=== PATIENT | female | born 1955 | race Caucasian/White ===

== ENCOUNTER 2019-01-01 22:17 | Emergency (ER) | payer OTHER ==
[2019-01-01 22:33] VITALS: RESP 16; O2SAT 99
[2019-01-02 00:36] VITALS: BP 136/71; PULSE 72; TEMP 98.1
--- NOTE | 2019-01-02 03:47 | ED PDOC ---
HPI: General Adult Time Seen by Provider: 01/01/19 23:18 Chief Complaint (Nursing): ENT Problem History Per: Patient History/Exam Limitations: no limitations Onset/Duration Of Symptoms: Days Have you had recent travel within the past 21 days to any of the following countries: [place], [place], [place] or [place]?: No Additional Complaint(s): 63 year old F presenting with foreign body sensation to throat. States she was chewing a gummy vitamin 2 days prior and still feels as though a piece of it may be stuck in her throat. Denies difficulty swallowing solids or liquids, no vomiting but felt the urge to regurgitate after dinner tonight. No shortness of breath. PMD: [place] Past Medical History Reviewed: Historical Data, Nursing Documentation, Vital Signs Vital Signs: Last Vital Signs Temp 98.1 F 01/01/19 23:50 Pulse 72 01/01/19 23:50 Resp 16 01/01/19 23:50 BP 136/71 01/01/19 23:50 Pulse Ox 99 01/01/19 23:50 Primary Care Provider: Non [facility] Provider, - Family History Family History: States: Unknown Family Hx - Allergies Allergies/Adverse Reactions: Allergies Allergy/AdvReac Type Severity Reaction Status Date / Time No Known Allergies Allergy Verified 01/01/19 22:39 Review of Systems ROS Statement: Except As Marked, All Systems Reviewed And Found Negative Respiratory: Negative for: Shortness of Breath Physical Exam - Reviewed Nursing Documentation Reviewed: Yes Vital Signs Reviewed: Yes - Physical Exam Appears: Positive for: Well, Non-toxic, No Acute Distress Head Exam: Positive for: ATRAUMATIC, NORMAL INSPECTION, NORMOCEPHALIC Skin: Positive for: Normal Color, Warm, DRY Eye Exam: Positive for: EOMI, Normal appearance, PERRL ENT: Positive for: Normal ENT Inspection Neck: Positive for: Normal, Painless ROM Cardiovascular/Chest: Positive for: Regular Rate, Rhythm Respiratory: Positive for: CNT, Normal Breath Sounds Gastrointestinal/Abdominal: Positive for: Normal Exam, Soft Back: Positive for: Normal Inspection Extremity: Positive for: Normal ROM Neurological/Psych: Positive for: Awake, Alert, Normal Tone - ECG O2 Sat by Pulse Oximetry: 99 Pulse Ox Interpretation: Normal Medical Decision Making Medical Decision Makin63 year old F with globus sensation --Very well appearing, tolerating PO, no respiratory distress --Advised patient that her symptoms are likely related to foreign body sensation rather than true foreign body --Offered imaging studies to check for sure, but patient declined at this time, preferred to followup at [place] --Encouraged patient to followup at [place] tomorrow --Very well appearing upon discharge Disposition - Clinical Impression Clinical Impression: Globus sensation - Disposition [facility] Disposition: Routine/Home Disposition Time: 23:50 Condition: IMPROVED Instructions: Foreign Body, Swallowed, Adult Forms: [facility] (Bul[place]ian)
== END 2019-01-01 23:50 | disposition home or self-care (01) ==
LOC: H.ER 22:17
DX: F45.8 Other somatoform disorders (principal)